=== PATIENT | female | born 1970 | race African-American/Black ===

== ENCOUNTER → 2017-03-12 | Outpatient (CLI) | payer OTHER ==
[~2017-03-12] MED LIST: FOLI1TAB16 PO; HYDR12.58 PO; LEVO25TA4 PO; POTA10CA PO; POTA20LI PO
[2017-03-12 16:56] LABS: BASO # 0.1 x10^3/uL (0.0-0.2); BASO % 1 % (0-3); EOS % 2 % (0-3); HEMATOCRIT 39.2 % (36.0-47.0); HEMOGLOBIN 13.8 g/dL (12.0-15.5); LYMPH # 3.7 x10^3/uL (1.0-4.8); LYMPH % 30 % (24-48); MEAN CORPUSCULAR HEMOGLOBIN 30 pg (25-35); MEAN CORPUSCULAR HGB CONC 35 g/dL (31-37); MEAN CORPUSCULAR VOLUME 85 fL (79-100); MONO % 5 % (0-9); NEUT % 63 % (31-73); PLATELET COUNT 262 x10^3/uL (140-400); RED BLOOD COUNT 4.61 x10^6/uL (3.50-5.40); RED CELL DISTRIBUTION WIDTH 15.6 % (11.5-14.5); WHITE BLOOD COUNT 12.4 x10^3/uL (4.0-11.0)
[2017-03-12 17:08] LABS: CREATININE 1.1 mg/dL (0.6-1.0); GFR 65.3; POTASSIUM 3.5 mmol/L (3.5-5.1)
[2017-03-12 17:22] LABS: FREE T4 1.33 ng/dL (0.76-1.46)
== END | disposition home or self-care (01) ==
LOC: LAB 16:31
PROVIDERS: ATTEND Family Medicine
DX: E11.9 Type 2 diabetes mellitus without complications (principal); D64.9 Anemia, unspecified; E03.9 Hypothyroidism, unspecified
CPT/HCPCS: 36415; 80048; 83036; 84439; 84443; 85027

== ENCOUNTER → 2017-10-14 | Outpatient (CLI) | payer OTHER ==
[~2017-10-14] MED LIST changes: -POTA10CA PO; -POTA20LI PO; +POTA20LI27 PO; +POTASSIUM CHLO10 MEQ PO
[2017-10-14 15:52] LABS: ALBUMIN 3.7 g/dL (3.4-5.0); ALBUMIN/GLOBULIN RATIO 0.9 (1.0-1.7); CALCIUM 9.4 mg/dL (8.5-10.1); CREATININE 0.9 mg/dL (0.6-1.0); GFR 81.9; POTASSIUM 3.5 mmol/L (3.5-5.1); TOTAL BILIRUBIN 0.2 mg/dL (0.2-1.0)
[2017-10-14 15:56] LABS: CHOLESTEROL/HDL RATIO 4.8
[2017-10-14 16:00] LABS: FREE T4 1.19 ng/dL (0.76-1.46)
== END | disposition home or self-care (01) ==
LOC: LAB 15:14
PROVIDERS: ATTEND Family Medicine
DX: E11.9 Type 2 diabetes mellitus without complications (principal); E03.9 Hypothyroidism, unspecified
CPT/HCPCS: 36415; 80053; 80061; 83036; 84439; 84443

== ENCOUNTER 2018-02-12 08:55 | Emergency (ER) | payer OTHER ==
[2018-02-12] MEDS: PROMETH/CODEINE 6.25/10MG 5 ML SYRUP. PO (09:43)
[2018-02-12 10:14] LABS: NEGATIVE OBC STREP NEG; POSITIVE OBC STREP POS
== END 2018-02-12 10:05 | disposition home or self-care (01) ==
LOC: ER 10:05
DX: J11.1 Influenza due to unidentified influenza virus with other respiratory manifestations (principal); E11.9 Type 2 diabetes mellitus without complications; I10 Essential (primary) hypertension; E89.0 Postprocedural hypothyroidism; Z88.0 Allergy status to penicillin
CPT/HCPCS: 87070; 87880; 99283

== ENCOUNTER → 2018-11-17 | Outpatient (CLI) | payer OTHER ==
[2018-02-12 09:13] VITALS: BP 147/84
[~2018-11-17] MED LIST changes: +GADOBUTROL 10 MMOL/10 ML VIAL IV ONE; +METF500T16 PO; +POTA10TA12 PO; -POTASSIUM CHLO10 MEQ PO; +PROM118S5 PO
--- NOTE | 2018-11-17 16:27 | KCIC ---
Examination: PELVIS WO/W CONTRAST History: Fibroids. Heavy bleeding since March. Comparison/Correlation: Correlation with pelvic ultrasound reports dated 12/26/2008 Findings: Multiplanar, multisequence images of the pelvis were obtained. Following 9 cc Gadavist IV, sagittal T1 fat saturation images were provided. The uterus is enlarged measuring up to 17 cm longitudinal by 8.5 cm in anteroposterior by 9.4 cm transverse. Heterogeneity of the myometrium which likely represents diffuse fibroid involvement is identified. There is a focal fibroid at the anterior aspect of the lower uterine body measuring up to 3 cm diameter. There is no enhancement within it. Endometrial thickness of 0.8 cm is present. There is no intrauterine fluid collection. Junctional zone is unremarkable with no significant thickening. There appear to be 2 nabothian cysts within uterine cervix with larger of these measuring 0.8 cm diameter. Right adnexal cyst measuring 3 cm diameter is benign in appearance. No left adnexal masses. No pelvic free fluid. Musculoskeletal by the pelvis is partially seen and unremarkable. Visualized marrow is normal. Hip joints are symmetric. No pelvic free fluid. Urinary bladder is decompressed but grossly unremarkable. Impression: Enlarged fibroid uterus. Diffuse fibroid involvement is evident. There is a dominant fibroid at the anterior aspect of the lower uterine body. No suspicious junctional zone findings. Endometrial thickness is unremarkable. Simple benign-appearing right adnexal cyst. Electronically signed by: Tate Mendiola MD (11/17/2018 4:23 PM) [facility]
== END | disposition home or self-care (01) ==
LOC: KCIC MRI 11:30
PROVIDERS: ATTEND Obstetrics & Gynecology
DX: D25.9 Leiomyoma of uterus, unspecified (principal); N83.8 Other noninflammatory disorders of ovary, fallopian tube and broad ligament; I10 Essential (primary) hypertension; E11.9 Type 2 diabetes mellitus without complications
CPT/HCPCS: 72197; 82565; A9585

== ENCOUNTER 2019-04-27 08:30 | Observation (INO) | payer OTHER ==
[~2019-04-27] VITALS: Ht 149.9 cm; Wt 90.7 kg
[2019-04-27] VITALS (9 sets, daily range): BP systolic 137–166; BP diastolic 87–108
[~2019-04-27 08:30] MED LIST changes: -GADOBUTROL 10 MMOL/10 ML VIAL IV ONE; +GLIP5TAB22 PO; +LEVO1TAB47 PO; +TRIA1TAB3 PO
[2019-04-27 09:10] LABS: BASO % 0 % (0-3); CALCIUM 8.9 mg/dL (8.5-10.1); CREATININE 0.8 mg/dL (0.6-1.0); EOS # 0.2 x10^3/uL (0.0-0.7); EOS % 3 % (0-3); GFR 93.4; HEMATOCRIT 40.6 % (36.0-47.0); HEMOGLOBIN 13.9 g/dL (12.0-15.5); LYMPH # 2.6 x10^3/uL (1.0-4.8); LYMPH % 30 % (24-48); MEAN CORPUSCULAR HEMOGLOBIN 30 pg (25-35); MEAN CORPUSCULAR HGB CONC 34 g/dL (31-37); MEAN CORPUSCULAR VOLUME 87 fL (79-100); MONO # 0.5 x10^3/uL (0.0-1.1); MONO % 6 % (0-9); NEUT # 5.3 x10^3uL (1.8-7.7); NEUT % 61 % (31-73); PLATELET COUNT 202 x10^3/uL (140-400); POTASSIUM 3.8 mmol/L (3.5-5.1); RED BLOOD COUNT 4.67 x10^6/uL (3.50-5.40); RED CELL DISTRIBUTION WIDTH 14.1 % (11.5-14.5); WHITE BLOOD COUNT 8.7 x10^3/uL (4.0-11.0)
[2019-04-27 09:23] LABS: PROTHROMBIN TIME PATIENT 14.4 SEC (11.7-14.0)
[2019-04-27] MEDS ORDERED: DOXY100C2 PO (09:25)
[2019-04-27] MEDS ORDERED: LIDOCAINE WITH 8.4% SOD BICARB 3 ML DISP.SYRIN. ONE ×2 (10:13→12:15)
[2019-04-27] MEDS ORDERED: IODIXANOL 320 MG/ML 100 ML VIAL. ONE (10:13)
[2019-04-27] MEDS ORDERED: IOHEXOL 300 MG/ML 100ML VIAL. ONE ×2 (10:17→10:46)
--- NOTE | 2019-04-27 10:25 | PDOC1 ---
History and Physical Date of Admission Date of Admission DATE: 04/27/19 TIME: 10:10 Identification/Chief Complaint Chief Complaint Uterine bleeding Source Source: Patient History of Present Illness History of Present Illness Ms Jordan is a 48yo F w/ PMHx Diabetes-Type II, Hypertension, hypothyroid s/p total thyroidectomy, uterine bleeding with fibroids s/p prior d&c who presents today for uterine arterial embolization for symptomatic uterine bleeding. She has been fatigued since this last September 2018. For her diabetes she states she is prediabetic, however, has A1c last September of 7.8 managed on metformin alone. TSH has been WNL. Glucose this morning was 199, INR 1.2, otherwise her Hb was 13.9, no abnormalities on labs. She is UTD on mammogram and Pap smear. She has no other complaints today. She does note she is recovering from a sinus infection last month, but notes her sinus pressure and cough have resolved. Past Medical History Cardiovascular: HTN Pulmonary: No pertinent hx GI: No pertinent hx Heme/Onc: No pertinent hx Hepatobiliary: No pertinent hx Psych: No pertinent hx Rheumatologic: No pertinent hx Infectious disease: No pertinent hx ENT: No pertinent hx Renal/: No pertinent hx Endocrine: Diabetes, Hypothyroidism Dermatology: No pertinent hx Past Surgical History Past Surgical History: Other (Thyroidectomy) Family History Family History: Cancer, Diabetes, High Cholestrol, Hypertension Family History: Parent (HTN in mother and father), Grandparents (Breast cancer in paternal grandmother) Social History Smoke: No ALCOHOL: rare Drugs: None Current Medications Current Medications Active Scripts Active Reported Doxycycline Hyclate 100 Mg Capsule 1 Cap PO BID Glipizide Er (Glipizide) 5 Mg Tab.er.24 1 Tab PO DAILY Triamterene-Hctz 37.5-25 Mg Tb (Triamterene/Hydrochlorothiazid) 1 Each Tablet 1 Tab PO DAILY Kurvelo (Levonorgestrel-Eth Estradiol) 1 Each Tablet 1 Each PO DAILY Metformin Hcl 500 Mg Tablet 500 Mg PO BIDWMEALS Levothyroxine Sodium 25 Mcg Tablet 1 Tab PO DAILY Allergies Allergies: Coded Allergies: Penicillins (Unverified Allergy, Intermediate, 06/25/15) ROS General: YES: Fatigue, Malaise; No: Chills, Night Sweats, Appetite, Other PSYCHOLOGICAL ROS: No: Anxiety, Behavioral Disorder, Concentration difficultie, Decreased libido, Depression, Disorientation, Hallucinations, Hostility, Irritablity, Memory difficulties, Mood Swings, Obsessive thoughts, Physical abuse, Sexual abuse, Sleep disturbances, Suicidal ideation, Other Eyes: No Blurry vision, No Decreased vision, No Double vision, No Dry eyes, No Excessive tearing, No Eye Pain, No Itchy Eyes, No Loss of vision, No Photopho saima, No Scotomata, No Uses contacts, No Uses glasses, No Other HEENT: No: Heacaches, Visual Changes, Hearing change, Nasal congestion, Nasal discharge, Oral lesions, Sinus pain, Sore Throat, Epistaxis, Sneezing, Snoring, Tinnitus, Vertigo, Vocal changes, Other ALLERGY AND IMMUNOLOGY: No: Hives, Insect Bite Sensitivity, Itchy/Watery Eyes, Nasal Congestion, Post Nasal Drip, Seasonal Allergies, Other Hematological and Lymphatic: No: Bleeding Problems, Blood Clots, Blood Transfusions, Brusing, Night Sweats, Pallor, Swollen Lymph Nodes, Other ENDOCRINE: No: Breast Changes, Galactorrhea, Hair Pattern Changes, Hot Flashes, Malaise/lethargy, Mood Swings, Palpitations, Polydipsia/polyuria, Skin Changes, Temperature Intolerance, Unexpected Weight Changes, Other Breast: No New/Changing Breast Lumps, No Nipple changes, No Nipple discharge, No Other Respiratory: No: Cough, Hemoptysis, Orthopnea, Pleuritic Pain, Shortness of breath, SOB with excertion, Sputum Changes, Stridor, Tachypnea, Wheezing, Other Cardiovascular: No Chest Pain, No Palpitations, No Orthopnea, No Paroxysmal Noc. Dyspnea, No Edema, No Lt Headedness, No Other Gastrointestinal: No Nausea, No Vomiting, No Abdominal Pain, No Diarrhea, No Constipation, No Melena, No Hematochezia, No Other Genitourinary: No Dysuria, No Frequency, No Incontinence, No Hematuria, No Ret ention, No Discharge, No Urgency, No Pain, No Flank Pain, No Other, No , No , No , No , No , No , No Musculoskeletal: No Gait Disturbance, No Joint Pain, No Joint Stiffness, No Joint Swelling, No Muscle Pain, No Muscular Weakness, No Pain In:, No Swelling In:, No Other Neurological: No Behavorial Changes, No Bowel/Bladder ControlChng, No Confusion, No Dizziness, No Gait Disturbance, No Headaches, No Impaired Coord/balance, No Memory Loss, No Numbness/Tingling, No Seizures, No Speech Problems, No Tremors, No Visual Changes, No Weakness, No Other Skin: No Dry Skin, No Eczema, No Hair Changes, No Lumps, No Mole Changes, No Mottling, No Nail Changes, No Pruritus, No Rash, No Skin Lesion Changes, No Other, No Acne Physical Exam General: Alert, Oriented X3, Cooperative, No acute distress HEENT: Atraumatic, PERRLA, EOMI, Mucous membr. moist/pink, Other (Glasses in place) Lungs: Clear to auscultation, Normal air movement Heart: S1S2, RRR, no gallops, no murmurs Abdomen: Normal bowel sounds, Soft, No tenderness, No hepatosplenomegaly, No masses Rectal Exam: not examined Extremities: No clubbing, No cyanosis, No edema, Normal pulses, No tenderness/swelling Skin: No rashes, No breakdown, No significant lesion Neuro: Normal gait, Normal speech, Strength at 5/5 X4 ext, Normal tone, Sensation intact, Cranial nerves 3-12 NL, Reflexes 2+ Psych/Mental Status: Mental status NL, Mood NL Vitals Vitals Vital Signs Date Time Temp Pulse Resp B/P (MAP) Pulse Ox O2 Delivery O2 Flow Rate FiO2 04/27/19 09:07 98.7 84 16 166/96 (119) 97 Room Air 98.7 Labs Labs Laboratory Tests Test 04/27/19 08:47 White Blood Count 8.7 x10^3/uL (4.0-11.0) Red Blood Count 4.67 x10^6/uL (3.50-5.40) Hemoglobin 13.9 g/dL (12.0-15.5) Hematocrit 40.6 % (36.0-47.0) Mean Corpuscular Volume 87 fL (79-100) Mean Corpuscular Hemoglobin 30 pg (25-35) Mean Corpuscular Hemoglobin Concent 34 g/dL (31-37) Red Cell Distribution Width 14.1 % (11.5-14.5) Platelet Count 202 x10^3/uL (140-400) Neutrophils (%) (Auto) 61 % (31-73) Lymphocytes (%) (Auto) 30 % (24-48) Monocytes (%) (Auto) 6 % (0-9) Eosinophils (%) (Auto) 3 % (0-3) Basophils (%) (Auto) 0 % (0-3) Neutrophils # (Auto) 5.3 x10^3uL (1.8-7.7) Lymphocytes # (Auto) 2.6 x10^3/uL (1.0-4.8) Monocytes # (Auto) 0.5 x10^3/uL (0.0-1.1) Eosinophils # (Auto) 0.2 x10^3/uL (0.0-0.7) Basophils # (Auto) 0.0 x10^3/uL (0.0-0.2) Prothrombin Time 14.4 SEC (11.7-14.0) Prothromb Time International Ratio 1.2 (0.8-1.1) Activated Partial Thromboplast Time 25 SEC (24-38) Sodium Level 138 mmol/L (136-145) Potassium Level 3.8 mmol/L (3.5-5.1) Chloride Level 102 mmol/L (98-107) Carbon Dioxide Level 22 mmol/L (21-32) Anion Gap 14 (6-14) Blood Urea Nitrogen 12 mg/dL (7-20) Creatinine 0.8 mg/dL (0.6-1.0) Estimated GFR (Cockcroft-Gault) 93.4 Glucose Level 199 mg/dL (70-99) Calcium Level 8.9 mg/dL (8.5-10.1) Laboratory Tests Test 04/27/19 08:47 White Blood Count 8.7 x10^3/uL (4.0-11.0) Red Blood Count 4.67 x10^6/uL (3.50-5.40) Hemoglobin 13.9 g/dL (12.0-15.5) Hematocrit 40.6 % (36.0-47.0) Mean Corpuscular Volume 87 fL (79-100) Mean Corpuscular Hemoglobin 30 pg (25-35) Mean Corpuscular Hemoglobin Concent 34 g/dL (31-37) Red Cell Distribution Width 14.1 % (11.5-14.5) Platelet Count 202 x10^3/uL (140-400) Neutrophils (%) (Auto) 61 % (31-73) Lymphocytes (%) (Auto) 30 % (24-48) Monocytes (%) (Auto) 6 % (0-9) Eosinophils (%) (Auto) 3 % (0-3) Basophils (%) (Auto) 0 % (0-3) Neutrophils # (Auto) 5.3 x10^3uL (1.8-7.7) Lymphocytes # (Auto) 2.6 x10^3/uL (1.0-4.8) Monocytes # (Auto) 0.5 x10^3/uL (0.0-1.1) Eosinophils # (Auto) 0.2 x10^3/uL (0.0-0.7) Basophils # (Auto) 0.0 x10^3/uL (0.0-0.2) Prothrombin Time 14.4 SEC (11.7-14.0) Prothromb Time International Ratio 1.2 (0.8-1.1) Activated Partial Thromboplast Time 25 SEC (24-38) Sodium Level 138 mmol/L (136-145) Potassium Level 3.8 mmol/L (3.5-5.1) Chloride Level 102 mmol/L (98-107) Carbon Dioxide Level 22 mmol/L (21-32) Anion Gap 14 (6-14) Blood Urea Nitrogen 12 mg/dL (7-20) Creatinine 0.8 mg/dL (0.6-1.0) Estimated GFR (Cockcroft-Gault) 93.4 Glucose Level 199 mg/dL (70-99) Calcium Level 8.9 mg/dL (8.5-10.1) Images Images MRI pelvis - The uterus is enlarged measuring up to 17 cm longitudinal by 8.5 cm in anteroposterior by 9.4 cm transverse. Heterogeneity of the myometrium which likely represents diffuse fibroid involvement is identified. There is a focal fibroid at the anterior aspect of the lower uterine body measuring up to 3 cm diameter. There is no enhancement within it. Endometrial thickness of 0.8 cm is present. There is no intrauterine fluid collection. Junctional zone is unremarkable with no significant thickening. The re appear to be 2 nabothian cysts within uterine cervix with larger of these measuring 0.8 cm diameter. Right adnexal cyst measuring 3 cm diameter is benign in appearance. No left adnexal masses. No pelvic free fluid. Musculoskeletal by the pelvis is partially seen and unremarkable. Visualized marrow is normal. Hip joints are symmetric. No pelvic free fluid. Urinary bladder is decompressed but grossly unremarkable. Impression: Enlarged fibroid uterus. Diffuse fibroid involvement is evident. There is a sania nant fibroid at the anterior aspect of the lower uterine body. No suspicious junctional zone findings. Endometrial thickness is unremarkable. Simple benign-appearing right adnexal cyst. VTE Prophylaxis Ordered VTE Prophylaxis Devices: Yes VTE Pharmacological Prophylaxi: No Assessment/Plan Assessment/Plan A/P: Abnormal uterine bleeding - 2/2 large fibroid. No further testing required prior to procedure. Will check CBC and type and screen in AM Hypothyroid - surgically, needs complete replacement, will cont DM2 - will hold metformin with contrast dye exposure, sliding scale. She should consider secondary medication with A1c of 7.8 HTN - cont meds FEN - NPO for procedure. ADA diet post op PPX - SCDs now, lovenox tonight FULL CODE Observation status for uterine bleeding overnight ABDIRAHMAN GONZALEZ MD April 27, 2019 10:25
[2019-04-27 10:30] LABS: U PREG PATIENT NEGATIVE (NEG)
[2019-04-27] MEDS ORDERED: DEXTROSE 50% 25 GM / 50ML DISP.SYRIN. IV PRN (10:30)
[2019-04-27] MEDS ORDERED: MAGNESIUM HYDROXIDE 2,400 MG/30 ML ORAL.SUSP. PO PRN (10:30)
[2019-04-27] MEDS ORDERED: MAG HYDROX/ALUMINUM HYD/SIMETH 30 ML ORAL.SUSP PO PRN (10:30)
[2019-04-27] MEDS ORDERED: KETOROLAC 30 MG/ML VIAL. IV PRN ×2 (10:30→17:00)
[2019-04-27] MEDS ORDERED: ACETAMINOPHEN 325 MG TABLET. PO PRN (10:30)
[2019-04-27] MEDS ORDERED: ONDANSETRON PF 4 MG/2 ML VIAL. IV PRN (10:30)
[2019-04-27] MEDS ORDERED: SCOPOLAMINE 1.5MG PATCH. TD ONE (10:45)
[2019-04-27] MEDS ORDERED: ONDANSETRON PF 4 MG/2 ML VIAL. IV ONE (10:45)
[2019-04-27] MEDS ORDERED: KETOROLAC 30 MG/ML VIAL. IV ONE (10:45)
[2019-04-27] MEDS ORDERED: LISINOPRIL 5 MG TABLET. PO SCH (11:00)
[2019-04-27] MEDS ORDERED: MIDAZOLAM HCL/PF 5 MG/5 ML VIAL. ONE (11:10)
[2019-04-27] MEDS ORDERED: fentaNYL PF VIAL 250 MCG/5 ML VIAL ONE (11:10)
[2019-04-27] MEDS ORDERED: ONDANSETRON PF 4 MG/2 ML VIAL. ONE (11:22)
[2019-04-27] MEDS ORDERED: LIDOCAINE WITH 8.4% SOD BICARB 3 ML DISP.SYRIN. IJ ONE (11:45)
[2019-04-27] MEDS ORDERED: MIDAZOLAM HCL/PF 5 MG/5 ML VIAL. IV ONE (11:45)
[2019-04-27] MEDS ORDERED: fentaNYL PF VIAL 250 MCG/5 ML VIAL IV ONE (11:45)
[2019-04-27] MEDS ORDERED: IOHEXOL 300 MG/ML 100ML VIAL. IART ONE (11:45)
[2019-04-27] MEDS ORDERED: glipiZIDE ER 2.5 MG TAB.ER.24 PO SCH (12:00)
[2019-04-27] MEDS ORDERED: INSULIN LISPRO 300 UNITS/3 ML INSULN.PEN. SQ SCH (12:00)
[2019-04-27] MEDS ORDERED: CONTRAST GIVEN. MC PRN (12:00)
--- NOTE | 2019-04-27 12:57 | PDOC ---
BRIEF OPERATIVE NOTE Pre-Op Diagnosis Dysmenorrhea, uterine fibroids Post-Op Diagnosis same Procedure Performed Uterine artery embolizations, bilateral Surgeon Carolina Anesthesia Type: Conscious Sedation Findings Bilateral uterine artery embolization Complications No immediate JAKY ESCALERA MD April 27, 2019 12:56
--- NOTE | 2019-04-27 12:57 | PDOC ---
MODERATE SEDATION ASSESSMENT RISKS/ALTERNATIVES Risks/Alternatives Risks and alternatives of this type of sedation and procedure discussed with: RISK/ALTERNATIVES: Patient H & P ON CHART H & P H & P on chart and reviewed for co-morbid conditions and appropriate labs. H&P ON CHART: Yes STATUS PREG STATUS ASSESSED: Yes MEDS/ALLERGIES REVIEWED Meds/Allergies Reviewed Medications and Allergies including time and route of recently administered narcotics and sedatives. MEDS/ALLERGIES REVIEWED: Yes ASA RATING ASA RATING: II AIRWAY ASSESSMENT Airway Assessment Airway patency, oral function limitations, presence of caps, crowns, dentures, partials, and ability to extend neck assessed. AIRWAY ASSESSMENT: Yes MALLAMPATI SCORE MALLAMPATI SCORE: II PRE-SEDATION ASSESSMENT PRE-SEDATION ASSESSMENT: Yes JAKY ESCALERA MD April 27, 2019 12:57
[2019-04-27] MEDS ORDERED: MORPHINE SULFATE 2 MG/ML VIAL. IV PRN (14:30)
[2019-04-27] MEDS: oxyCODONE/APAP 5/325 1 TAB TABLET PO PRN ×2 (14:46→20:02)
--- NOTE | 2019-04-27 17:05 | RAD ---
Procedure: Pelvic arteriogram and bilateral uterine artery embolization Clinical Indication: 48-year-old female with dysmenorrhea, dyspareunia, and uterine fibroids. Patient has a negative endometrial biopsy. Sedation: Conscious sedation was administered with a total intraprocedural [id number] time of 65 minutes. The patient was monitored by a qualified independent observer throughout the time of sedation. Please refer to the medical record for exact doses of medications utilized to achieve moderate sedation. Antibiotics: Antibiotic was administered intravenously within 1 hour of the procedure start time. Exposure: Kerma-Area Product: 491 Gycm2 OR Fluoro Time: Images: Contrast: 65 cc of Omnipaque 320 contrast media Sterility: All elements of maximal sterile barrier technique including the use of a cap, mask, sterile gown, sterile gloves, large sterile sheet, appropriate hand hygiene, and 2% chlorhexidine for cutaneous antisepsis (or acceptable alternative antiseptic per current guidelines) were followed for this procedure. If ultrasound guidance was utilized, sterile ultrasound techniques were followed including use of a sterile probe cover. Consent: The procedure was explained in its entirety to the patient or the patients designated bilingual sales representative by a member of the treatment team, including a discussion of the risks, benefits and commonly accepted alternatives to the procedure, as well as the expected consequences of no therapy whatsoever. Discussion of the risks included, but was not limited to, those that are most frequent and those that are rare but possibly severe or life-threatening, as well as the possibility of unforeseen complications. Technique and Findings: Following informed consent, the patient was prepped and draped in usual sterile fashion. Ultrasound interrogation of the right groin was performed, demonstrating patency of the right common femoral artery. A hardcopy ultrasound image was recorded as a 21-gauge micropuncture needle was used to gain access to this vessel. The needle was exchanged over wire for 5 Croatian sheath. A flush catheter was then advanced in the abdominal aorta and contrast aortography was performed. No prominent contribution from the gonadal arteries is identified. Bilateral hypogastric arteries and bilateral uterine arteries are patent. The flush catheter was then exchanged over wire for a Cobra catheter which was advanced into the contralateral left internal iliac artery and selective angiography was performed in multiple obliquities to best delineate the origin of the left uterine artery. A Progreat microcatheter was then advanced into the uterine artery just beyond the level of the transverse segment, and selective angiography was performed nicely demonstrating flow to the uterus, with no extrauterine perfusion. Particulate embolization of this artery was then performed with the catheter in this location, using 500-700 um embosphere beads to achieve 5 beat stasis. The microcatheter was then removed and a completion angiogram was performed from the left hypogastric artery nicely depicting marked reduction in perfusion with pruning of the peripheral vasculature. The Cobra catheter was then withdrawn into the ipsilateral side and used to select the ipsilateral hypogastric artery. Contrast angiography was performed confirming patency of the right uterine artery. The Progreat microcatheter was then advanced into the right uterine artery, and once again positioned just beyond the transverse segment. Selective angiography demonstrated perfusion of the uterus with no extra uterine perfusion. Particulate embolization was performed in this location using 500-700 um embosphere beats to achieve 5 beat stasis. The microcatheter was then removed and a completion antegrade was performed from the hypogastric artery nicely demonstrating marked reduction in perfusion with pruning of the peripheral vasculature. The guide catheter was then removed and contrast angiography of the right groin was performed to assess for suitability of a closure device. A minx closure device was then utilized to obtain hemostasis. Complications: No immediate Impression: 1. Aortogram with pelvic angiography demonstrating a fibroid uterus with no unexpected gonadal vein contribution. 2. Bilateral uterine artery embolization as described.
--- NOTE | 2019-04-27 19:17 | NUR ---
pt blood sugar was 200 pt refused insulin
[2019-04-27] MEDS: SENNOSIDES/DOCUSATE 8.6/50MG TABLET. PO SCH ×2 (20:02→21:00)
[2019-04-27] MEDS ORDERED: INSULIN GLARGINE 300 UNITS/3 ML INSULN.PEN. SQ SCH (21:00)
--- NOTE | 2019-04-27 21:00 | NUR ---
Gave pt Senna with her pain medication at 1999, instead of 2099.
[2019-04-28] MEDS: oxyCODONE/APAP 5/325 1 TAB TABLET PO PRN ×3 (01:22→10:42)
[2019-04-28 03:00] VITALS: BP 153/90
[2019-04-28 04:20] LABS: BASO # 0.1 x10^3/uL (0.0-0.2); BASO % 1 % (0-3); EOS # 0.2 x10^3/uL (0.0-0.7); EOS % 2 % (0-3); HEMOGLOBIN 12.8 g/dL (12.0-15.5); LYMPH # 2.9 x10^3/uL (1.0-4.8); LYMPH % 29 % (24-48); MEAN CORPUSCULAR HEMOGLOBIN 30 pg (25-35); MEAN CORPUSCULAR HGB CONC 34 g/dL (31-37); MEAN CORPUSCULAR VOLUME 88 fL (79-100); MONO # 0.6 x10^3/uL (0.0-1.1); MONO % 6 % (0-9); NEUT # 6.3 x10^3uL (1.8-7.7); NEUT % 62 % (31-73); PLATELET COUNT 186 x10^3/uL (140-400); RED BLOOD COUNT 4.31 x10^6/uL (3.50-5.40); RED CELL DISTRIBUTION WIDTH 14.2 % (11.5-14.5); WHITE BLOOD COUNT 10.2 x10^3/uL (4.0-11.0)
[2019-04-28 05:52] VITALS: BP 135/96
[2019-04-28] MEDS ORDERED: LEVOTHYROXINE 125 MCG TABLET PO SCH (06:00)
--- NOTE | 2019-04-28 10:17 | PDOC ---
IR PROGRESS NOTE Subjective Subjective Mild abdominal pain, no fever, no dysuria. Tired. Pain controlled with po pain medications. Pt. did not require PATTERN WHE[employer]. Tolerating PO Objective Objective Vital Signs Date Time Temp Pulse Resp B/P (MAP) Pulse Ox O2 Delivery O2 Flow Rate FiO2 04/28/19 06:00 18 96 Room Air 04/28/19 06:00 75 135/96 04/28/19 05:52 98.8 98.8 04/27/19 12:54 2.0 Intake and Output 04/28/19 07:00 Intake Total 1300 ml Output Total 1350 ml Balance -50 ml Intake Oral 1200 ml IV Total 100 ml Output Urine Total 1350 ml Other A & O x 3, right groin site free of hematoma/echymosis, abdomen soft and non- tender Comment Review of Relevant I have reviewed the following items rocky (where applicable) has been applied. Labs Laboratory Tests Test 04/27/19 08:47 04/27/19 09:50 04/27/19 18:14 04/28/19 04:05 White Blood Count 8.7 x10^3/uL (4.0-11.0) 10.2 x10^3/uL (4.0-11.0) Red Blood Count 4.67 x10^6/uL (3.50-5.40) 4.31 x10^6/uL (3.50-5.40) Hemoglobin 13.9 g/dL (12.0-15.5) 12.8 g/dL (12.0-15.5) Hematocrit 40.6 % (36.0-47.0) 38.0 % (36.0-47.0) Mean Corpuscular Volume 87 fL (79-100) 88 fL (79-100) Mean Corpuscular Hemoglobin 30 pg (25-35) 30 pg (25-35) Mean Corpuscular Hemoglobin Concent 34 g/dL (31-37) 34 g/dL (31-37) Red Cell Distribution Width 14.1 % (11.5-14.5) 14.2 % (11.5-14.5) Platelet Count 202 x10^3/uL (140-400) 186 x10^3/uL (140-400) Neutrophils (%) (Auto) 61 % (31-73) 62 % (31-73) Lymphocytes (%) (Auto) 30 % (24-48) 29 % (24-48) Monocytes (%) (Auto) 6 % (0-9) 6 % (0-9) Eosinophils (%) (Auto) 3 % (0-3) 2 % (0-3) Basophils (%) (Auto) 0 % (0-3) 1 % (0-3) Neutrophils # (Auto) 5.3 x10^3uL (1.8-7.7) 6.3 x10^3uL (1.8-7.7) Lymphocytes # (Auto) 2.6 x10^3/uL (1.0-4.8) 2.9 x10^3/uL (1.0-4.8) Monocytes # (Auto) 0.5 x10^3/uL (0.0-1.1) 0.6 x10^3/uL (0.0-1.1) Eosinophils # (Auto) 0.2 x10^3/uL (0.0-0.7) 0.2 x10^3/uL (0.0-0.7) Basophils # (Auto) 0.0 x10^3/uL (0.0-0.2) 0.1 x10^3/uL (0.0-0.2) Prothrombin Time 14.4 SEC (11.7-14.0) Prothromb Time International Ratio 1.2 (0.8-1.1) Activated Partial Thromboplast Time 25 SEC (24-38) Sodium Level 138 mmol/L (136-145) Potassium Level 3.8 mmol/L (3.5-5.1) Chloride Level 102 mmol/L (98-107) Carbon Dioxide Level 22 mmol/L (21-32) Anion Gap 14 (6-14) Blood Urea Nitrogen 12 mg/dL (7-20) Creatinine 0.8 mg/dL (0.6-1.0) Estimated GFR (Cockcroft-Gault) 93.4 Glucose Level 199 mg/dL (70-99) Calcium Level 8.9 mg/dL (8.5-10.1) Urine Test Negative (NEG) Glucose (Fingerstick) 200 mg/dL (70-99) Laboratory Tests Test 04/27/19 18:14 04/28/19 04:05 Glucose (Fingerstick) 200 mg/dL (70-99) White Blood Count 10.2 x10^3/uL (4.0-11.0) Red Blood Count 4.31 x10^6/uL (3.50-5.40) Hemoglobin 12.8 g/dL (12.0-15.5) Hematocrit 38.0 % (36.0-47.0) Mean Corpuscular Volume 88 fL (79-100) Mean Corpuscular Hemoglobin 30 pg (25-35) Mean Corpuscular Hemoglobin Concent 34 g/dL (31-37) Red Cell Distribution Width 14.2 % (11.5-14.5) Platelet Count 186 x10^3/uL (140-400) Neutrophils (%) (Auto) 62 % (31-73) Lymphocytes (%) (Auto) 29 % (24-48) Monocytes (%) (Auto) 6 % (0-9) Eosinophils (%) (Auto) 2 % (0-3) Basophils (%) (Auto) 1 % (0-3) Neutrophils # (Auto) 6.3 x10^3uL (1.8-7.7) Lymphocytes # (Auto) 2.9 x10^3/uL (1.0-4.8) Monocytes # (Auto) 0.6 x10^3/uL (0.0-1.1) Eosinophils # (Auto) 0.2 x10^3/uL (0.0-0.7) Basophils # (Auto) 0.1 x10^3/uL (0.0-0.2) Medications Current Medications Iodixanol (Visipaque 320) 100 ml STK-MED ONCE .ROUTE ; Start 04/27/19 at 10:13; Stop 04/27/19 at 10:14; Status DC Lidocaine/Sodium Bicarbonate (Buffered Lidocaine 1%) 3 ml STK-MED ONCE .ROUTE ; Start 04/27/19 at 10:13; Stop 04/27/19 at 10:14; Status DC Iohexol (Omnipaque 300 Mg/ml) 100 ml STK-MED ONCE .ROUTE ; Start 04/27/19 at 10:17; Stop 04/27/19 at 10:18; Status DC Heparin Sodium/ Sodium Chloride 500 ml @ As Directed STK-MED ONCE .ROUTE ; Start 04/27/19 at 10:18; Stop 04/27/19 at 10:19; Status DC Glipizide (Glucotrol Er) 5 mg DAILY08 PO ; Start 04/27/19 at 12:00 Levothyroxine Sodium (Synthroid) 125 mcg DAILY06 PO Last administered on 04/28/19at 06:00; Start 04/28/19 at 06:00 Ondansetron HCl (Zofran) 4 mg PRN Q6HRS PRN IV NAUSEA/VOMITING; Start 04/27/19 at 10:30 Al Hydroxide/Mg Hydroxide (Mylanta Plus Xs) 30 ml PRN Q3HRS PRN PO HEARTBURN / GAS; Start 04/27/19 at 10:30 Ketorolac Tromethamine (Toradol 30mg Vial) 30 mg PRN Q6HRS PRN IV PAIN; Start 04/27/19 at 10:30; Stop 05/02/19 at 10:29 Acetaminophen (Tylenol) 650 mg PRN Q6HRS PRN PO Headaches, Temp > 101.5F; Start 04/27/19 at 10:30 Senna/Docusate Sodium (Senna Plus) 1 tab BID PO Last administered on 04/27/19at 20:02; Start 04/27/19 at 11:00 Magnesium Hydroxide (Milk Of Magnesia) 2,400 mg PRN Q12HR PRN PO CONSTIPATION; Start 04/27/19 at 10:30 Insulin Glargine (Lantus) 5 units QHS SQ ; Start 04/27/19 at 21:00 Insulin Human Lispro (HumaLOG) 0-5 UNITS TIDWMEALHC SQ ; Start 04/27/19 at 12:00 Dextrose (Dextrose 50%-Water Syringe) 12.5 gm PRN Q15MIN PRN IV SEE COMMENTS; Start 04/27/19 at 10:30 Lisinopril (Prinivil) 2.5 mg DAILY PO Last administered on 04/28/19at 06:00; Start 04/27/19 at 11:00 Scopolamine (Transderm-Scop) 1 patch 1X ONCE TD Last administered on 04/27/19at 11:20; Start 04/27/19 at 10:45; Stop 04/27/19 at 10:46; Status DC Ondansetron HCl (Zofran) 8 mg 1X ONCE IV Last administered on 04/27/19at 10:45; Start 04/27/19 at 10:45; Stop 04/27/19 at 10:46; Status DC Ketorolac Tromethamine (Toradol 30mg Vial) 30 mg 1X ONCE IV Last administered on 04/27/19at 11:25; Start 04/27/19 at 10:45; Stop 04/27/19 at 10:46; Status DC Iohexol (Omnipaque 300 Mg/ml) 100 ml STK-MED ONCE .ROUTE ; Start 04/27/19 at 10:46; Stop 04/27/19 at 10:47; Status DC Heparin Sodium/ Sodium Chloride 500 ml @ As Directed STK-MED ONCE .ROUTE ; Start 04/27/19 at 10:46; Stop 04/27/19 at 10:47; Status DC Levofloxacin/ Dextrose 100 ml @ 100 mls/hr 1X ONCE IV Last administered on 04/27/19at 11:15; Start 04/27/19 at 10:45; Stop 04/27/19 at 11:44; Status DC Midazolam HCl (Versed) 5 mg STK-MED ONCE .ROUTE ; Start 04/27/19 at 11:10; Stop 04/27/19 at 11:11; Status DC Fentanyl Citrate (Fentanyl 5ml Vial) 250 mcg STK-MED ONCE .ROUTE ; Start 04/27/19 at 11:10; Stop 04/27/19 at 11:11; Status DC Levofloxacin/ Dextrose 100 ml @ As Directed STK-MED ONCE IV ; Start 04/27/19 at 11:10; Stop 04/27/19 at 11:11; Status DC Ondansetron HCl (Zofran) 4 mg STK-MED ONCE .ROUTE ; Start 04/27/19 at 11:22; Stop 04/27/19 at 11:23; Status DC Heparin Sodium/ Sodium Chloride (HEPARIN for ARTERIAL LINE FLUSH) 1,000 unit 1X ONCE IART Last administered on 04/27/19at 11:45; Start 04/27/19 at 11:45; Stop 04/27/19 at 11:48; Status DC Lidocaine/Sodium Bicarbonate (Buffered Lidocaine 1%) 3 ml 1X ONCE IJ Last administered on 04/27/19at 11:45; Start 04/27/19 at 11:45; Stop 04/27/19 at 11:48; Status DC Midazolam HCl (Versed) 5 mg 1X ONCE IV Last administered on 04/27/19at 11:45; Start 04/27/19 at 11:45; Stop 04/27/19 at 11:48; Status DC Fentanyl Citrate (Fentanyl 5ml Vial) 25 mcg 1X ONCE IV Last administered on 04/27/19at 11:45; Start 04/27/19 at 11:45; Stop 04/27/19 at 11:48; Status DC Iohexol (Omnipaque 300 Mg/ml) 100 ml 1X ONCE IART Last administered on 04/27/19at 11:45; Start 04/27/19 at 11:45; Stop 04/27/19 at 11:48; Status DC Info (CONTRAST GIVEN -- Rx MONITORING) 1 each PRN DAILY PRN MC SEE COMMENTS; Start 04/27/19 at 12:00; Stop 04/29/19 at 11:59 Lidocaine/Sodium Bicarbonate (Buffered Lidocaine 1%) 3 ml STK-MED ONCE .ROUTE ; Start 04/27/19 at 12:15; Stop 04/27/19 at 12:16; Status DC Levofloxacin/ Dextrose 100 ml @ 100 mls/hr Q24H IV ; Start 04/28/19 at 08:00; Stop 05/01/19 at 08:00 Ketorolac Tromethamine (Toradol 30mg Vial) 30 mg PRN Q6HRS PRN IV PAIN Last administered on 04/27/19at 18:26; Start 04/27/19 at 17:00; Stop 05/02/19 at 16:59 Oxycodone/ Acetaminophen (Percocet 5/325) 1 tab PRN Q4HRS PRN PO MODERATE PAIN Last administered on 04/28/19at 06:00; Start 04/27/19 at 14:30 Morphine Sulfate (Morphine Sulfate) 1 mg PRN Q3HRS PRN IV PAIN; Start 04/27/19 at 14:30 Oxycodone/ Acetaminophen (Percocet 5/325) 2 tab PRN Q4HRS PRN PO SEVERE PAIN Last administered on 04/27/19at 20:02; Start 04/27/19 at 14:45 Active Scripts Active Reported Doxycycline Hyclate 100 Mg Capsule 1 Cap PO BID Glipizide Er (Glipizide) 5 Mg Tab.er.24 1 Tab PO DAILY Triamterene-Hctz 37.5-25 Mg Tb (Triamterene/Hydrochlorothiazid) 1 Each Tablet 1 Tab PO DAILY Kurvelo (Levonorgestrel-Eth Estradiol) 1 Each Tablet 1 Each PO DAILY Metformin Hcl 500 Mg Tablet 500 Mg PO BIDWMEALS Levothyroxine Sodium 25 Mcg Tablet 1 Tab PO DAILY Vitals/I & O Vital Sign - Last 24 Hours 04/27/19 04/27/19 04/27/19 04/27/19 11:00 11:45 12:54 13:35 Temp 97.8 97.8 Pulse 81 82 Resp 14 14 18 B/P (MAP) 139/104 (116) Pulse Ox 98 98 97 O2 Delivery Room Air Nasal Cannula Nasal Cannula Room Air O2 Flow Rate 2.0 2.0 04/27/19 04/27/19 04/27/19 04/27/19 13:50 14:05 14:20 16:29 Pulse 87 84 87 18 Resp 18 B/P (MAP) 146/108 (121) 147/102 (117) 144/101 (115) 139/102 (114) Pulse Ox 98 97 O2 Delivery Room Air Room Air Room Air Room Air 04/27/19 04/27/19 04/27/19 04/27/19 18:15 20:02 21:50 23:00 Temp 98.0 98.1 98.0 98.1 Pulse 78 57 Resp 18 18 B/P (MAP) 137/93 (108) 147/87 (107) Pulse Ox 98 99 O2 Delivery Room Air Room Air Room Air Room Air 04/28/19 04/28/19 04/28/19 04/28/19 00:13 01:22 02:30 03:00 Temp 98.3 98.3 Pulse 56 Resp 18 18 18 18 B/P (MAP) 153/90 (111) Pulse Ox 98 O2 Delivery Room Air Room Air Room Air 04/28/19 04/28/19 04/28/19 05:52 06:00 06:00 Temp 98.8 98.8 Pulse 75 75 Resp 20 18 B/P (MAP) 135/96 (109) 135/96 Pulse Ox 96 96 O2 Delivery Room Air Room Air l Intake and Output 04/27/19 04/27/1919 15:00 23:00 07:00 Intake Total 100 ml 1100 ml 100 ml Output Total 550 ml 800 ml Balance 100 ml 550 ml -700 ml Assessment Assessment s/p bilateral uterine artery embolization for symptomatic uterine fibroids, pod 1 Plan Plan Ok to d/c navarro and d/c home today. F/U with IR in 3 months. Discharge instructions provided. D/C Meds - Levaquin, Medrol Dose Berto, Hydrocodone/APAP. JAKY ESCALERA MD April 28, 2019 10:17
[2019-04-28] MEDS: SENNOSIDES/DOCUSATE 8.6/50MG TABLET. PO SCH (10:41)
[2019-04-28] MEDS ORDERED: LEVO500T8 PO (11:22)
[2019-04-28] MEDS ORDERED: METH4TAB2 PO (11:22)
[2019-04-28] MEDS ORDERED: OXYC1TAB15 PO (11:22)
[2019-04-28 11:25] VITALS: BP 132/88
--- NOTE | 2019-04-28 11:25 | PDOC3 ---
Discharge Summary Visit Information Date of Admission: April 27, 2019 Date of Discharge: April 28, 2019 Admitting Diagnosis: Dysfunctionall uterine bleeding Final Diagnosis Dysfunctional uterine bleeding status post embolization History of essential hypertension well controlled History of diabetes mellitus type 2 History of hypothyroidism acquired Brief Hospital Course Allergies Allergies Coded Allergies Type Severity Reaction Last Updated Verified Penicillins Allergy Intermediate 04/28/19 Yes Vital Signs Vital Signs Date Time Temp Pulse Resp B/P (MAP) Pulse Ox O2 Delivery O2 Flow Rate FiO2 04/28/19 06:00 18 96 Room Air 04/28/19 06:00 75 135/96 04/28/19 05:52 98.8 98.8 04/27/19 12:54 2.0 Lab Results Laboratory Tests Test 04/27/19 08:47 04/27/19 09:50 04/27/19 18:14 04/28/19 04:05 White Blood Count 8.7 x10^3/uL (4.0-11.0) 10.2 x10^3/uL (4.0-11.0) Red Blood Count 4.67 x10^6/uL (3.50-5.40) 4.31 x10^6/uL (3.50-5.40) Hemoglobin 13.9 g/dL (12.0-15.5) 12.8 g/dL (12.0-15.5) Hematocrit 40.6 % (36.0-47.0) 38.0 % (36.0-47.0) Mean Corpuscular Volume 87 fL (79-100) 88 fL (79-100) Mean Corpuscular Hemoglobin 30 pg (25-35) 30 pg (25-35) Mean Corpuscular Hemoglobin Concent 34 g/dL (31-37) 34 g/dL (31-37) Red Cell Distribution Width 14.1 % (11.5-14.5) 14.2 % (11.5-14.5) Platelet Count 202 x10^3/uL (140-400) 186 x10^3/uL (140-400) Neutrophils (%) (Auto) 61 % (31-73) 62 % (31-73) Lymphocytes (%) (Auto) 30 % (24-48) 29 % (24-48) Monocytes (%) (Auto) 6 % (0-9) 6 % (0-9) Eosinophils (%) (Auto) 3 % (0-3) 2 % (0-3) Basophils (%) (Auto) 0 % (0-3) 1 % (0-3) Neutrophils # (Auto) 5.3 x10^3uL (1.8-7.7) 6.3 x10^3uL (1.8-7.7) Lymphocytes # (Auto) 2.6 x10^3/uL (1.0-4.8) 2.9 x10^3/uL (1.0-4.8) Monocytes # (Auto) 0.5 x10^3/uL (0.0-1.1) 0.6 x10^3/uL (0.0-1.1) Eosinophils # (Auto) 0.2 x10^3/uL (0.0-0.7) 0.2 x10^3/uL (0.0-0.7) Basophils # (Auto) 0.0 x10^3/uL (0.0-0.2) 0.1 x10^3/uL (0.0-0.2) Prothrombin Time 14.4 SEC (11.7-14.0) Prothromb Time International Ratio 1.2 (0.8-1.1) Activated Partial Thromboplast Time 25 SEC (24-38) Sodium Level 138 mmol/L (136-145) Potassium Level 3.8 mmol/L (3.5-5.1) Chloride Level 102 mmol/L (98-107) Carbon Dioxide Level 22 mmol/L (21-32) Anion Gap 14 (6-14) Blood Urea Nitrogen 12 mg/dL (7-20) Creatinine 0.8 mg/dL (0.6-1.0) Estimated GFR (Cockcroft-Gault) 93.4 Glucose Level 199 mg/dL (70-99) Calcium Level 8.9 mg/dL (8.5-10.1) Urine Test Negative (NEG) Glucose (Fingerstick) 200 mg/dL (70-99) Laboratory Tests Test 04/27/19 18:14 04/28/19 04:05 Glucose (Fingerstick) 200 mg/dL (70-99) White Blood Count 10.2 x10^3/uL (4.0-11.0) Red Blood Count 4.31 x10^6/uL (3.50-5.40) Hemoglobin 12.8 g/dL (12.0-15.5) Hematocrit 38.0 % (36.0-47.0) Mean Corpuscular Volume 88 fL (79-100) Mean Corpuscular Hemoglobin 30 pg (25-35) Mean Corpuscular Hemoglobin Concent 34 g/dL (31-37) Red Cell Distribution Width 14.2 % (11.5-14.5) Platelet Count 186 x10^3/uL (140-400) Neutrophils (%) (Auto) 62 % (31-73) Lymphocytes (%) (Auto) 29 % (24-48) Monocytes (%) (Auto) 6 % (0-9) Eosinophils (%) (Auto) 2 % (0-3) Basophils (%) (Auto) 1 % (0-3) Neutrophils # (Auto) 6.3 x10^3uL (1.8-7.7) Lymphocytes # (Auto) 2.9 x10^3/uL (1.0-4.8) Monocytes # (Auto) 0.6 x10^3/uL (0.0-1.1) Eosinophils # (Auto) 0.2 x10^3/uL (0.0-0.7) Basophils # (Auto) 0.1 x10^3/uL (0.0-0.2) Brief Hospital Course Ms Jordan is a 48yo F w/ PMHx Diabetes-Type II, Hypertension, hypothyroid s/p total thyroidectomy, uterine bleeding with fibroids s/p prior d&c who presents today for uterine arterial embolization for symptomatic uterine bleeding. She has been fatigued since this last September 2018. For her diabetes she states she is prediabetic, however, has A1c last September of 7.8 managed on metformin alone. TSH has been WNL. Glucose this morning was 199, INR 1.2, otherwise her Hb was 13.9, no abnormalities on labs. She is UTD on mammogram and Pap smear. She has no other complaints today. She does note she is recovering from a sinus infection last month, but notes her sinus pressure and cough have resolved. Patient underwent the following procedure: Pre-Op Diagnosis Dysmenorrhea, uterine fibroids Post-Op Diagnosis same Procedure Performed Uterine artery embolizations, bilateral Surgeon Carolina Anesthesia Type: Conscious Sedation Findings Bilateral uterine artery embolization Complications No immediate Tolerated her procedure well and was deemed appropriate for discharge. The patient was given instructions to follow-up in the outpatient setting with her physicians and with her primary care within 1 week. The patient acknowledged understanding of all the signs and symptoms of alarm and when to call for medical attention. She will receive a prescription for levofloxacin a Medrol Dosepak and pain management. CONCERNS WERE ADDRESSED THE BEST MY ABILITIES Physical exam for today lungs were clear to auscultation with good inspiratory effort bilaterally Cardiovascular exam S1-S2 regular rhythm no murmurs calls or rubs Discharge Information Condition at Discharge: Improved Follow Up: Weeks Disposition/Orders: D/C to Home Scheduled Glipizide (Glipizide Er) 5 Mg Tab.er.24, 1 TAB PO DAILY for blood sugar control, #30 Ref 5 (Reported) Entered as Reported by: ABDIAZIZ CADET on 12/08/18 1158 Last Taken: Unknown Dose on 04/26/19 Last Action: Converted on 04/27/19 1025 by ABDIRAHMAN GONZALEZ MD Levofloxacin (Levofloxacin) 500 Mg Tablet, 1 TAB PO DAILY for infection, #5 Prescribed by: BELL LOUISE MD on 04/28/19 1122 Levonorgestrel-Eth Estradiol (Kurvelo) 1 Each Tablet, 1 EACH PO DAILY for control, (Reported) Entered as Reported by: ABDIAZIZ CADET on 12/08/18 1156 Last Taken: Unknown Dose on 04/26/19 Last Action: Last Taken Edited on 04/27/19924 by ABDIAZIZ CADET Levothyroxine Sodium (Levothyroxine Sodium) 25 Mcg Tablet, 1 TAB PO DAILY, #30 Ref 5 (Reported) Entered as Reported by: MU MEZA on 09/03/14 2239 Last Taken: 125 mcg on 04/27/19 Last Action: Converted on 04/27/19 1025 by ABDIRAHMAN GONZALEZ MD Metformin Hcl (Metformin Hcl) 500 Mg Tablet, 500 MG PO BIDWMEALS for ANTI- DIABETIC, Ref 0 (Reported) Entered as Reported by: Claudia Winston on 11/17/18 1215 Last Taken: Unknown Dose on 04/26/19 Last Action: Last Taken Edited on 04/27/19924 by ABDIAZIZ CADET Methylprednisolone (Medrol) 4 Mg Tab.ds.pk, 1 PKG PO UD for inflammation, #1 Prescribed by: BELL LOUISE MD on 04/28/191121 Triamterene/Hydrochlorothiazid (Triamterene-Hctz 37.5-25 Mg Tb) 1 Each Tablet, 1 TAB PO DAILY for blood pressure control, #30 Ref 5 (Reported) Entered as Reported by: ABDIAZIZ CADET on 12/08/18 1158 Last Taken: Unknown Dose on 04/27/19 Last Action: Last Taken Edited on 04/27/19924 by ABDIAZIZ CADET Scheduled PRN Oxycodone/Apap 5-325 (Percocet 5-325 Mg Tablet ) 1 Each Tablet, 2 TAB PO PRN Q4HRS PRN for SEVERE PAIN for 7 Days, #20 Prescribed by: BELL LOUISE MD on 04/28/19 112 Discontinued Medications Doxycycline Hyclate (Doxycycline Hyclate) 100 Mg Capsule, 1 CAP PO BID for sinus infection, #14 (Reported) Entered as Reported by: ABDIAZIZ CADET on 04/27/19924 Last Taken: Unknown Dose on 04/26/19 Last Action: New Order on 04/27/19924 by BELL LINDSEY MD April 28, 2019 11:25
== END 2019-04-28 13:07 | disposition home or self-care (01) ==
LOC: INTRAD 08:30 → 3 NORTH 09:00
PROVIDERS: ADMIT Internal Medicine; ATTEND Internal Medicine
DX: D25.9 Leiomyoma of uterus, unspecified (principal); I10 Essential (primary) hypertension; E11.9 Type 2 diabetes mellitus without complications; N85.2 Hypertrophy of uterus; N93.8 Other specified abnormal uterine and vaginal bleeding; N94.6 Dysmenorrhea, unspecified; E89.0 Postprocedural hypothyroidism; Z98.890 Other specified postprocedural states; Z80.3 Family history of malignant neoplasm of breast; Z82.49 Family history of ischemic heart disease and other diseases of the circulatory system; Z83.3 Family history of diabetes mellitus
CPT/HCPCS: 36415; 37242; 75625; 75736; 76937; 80048; 81025; 82962; 85025; 85610; 85730; 96365; 96366; 96375; 96376; A4314; C1713; C1769; C1887; C1892; C1894; G0269; G0378; G0379; J1644; J1885; J1956; J2250; J2405; J3010; Q9967; 99152; 99153; J1815

== ENCOUNTER → 2019-10-18 | Outpatient (CLI) | payer OTHER ==
[~2019-10-18] MED LIST changes: +DOXY100C2 PO; +LEVO500T8 PO; +METH4TAB2 PO; +OXYC1TAB15 PO; +POTA20LI2 PO; -POTA20LI27 PO
--- NOTE | 2019-10-19 08:27 | RAD ---
EXAM: Pelvic ultrasound HISTORY: Uterine fibroid status post embolization. COMPARISON: 11/17/2018. FINDINGS: Sonographic evaluation of the pelvis was performed transabdominally. The uterus is neutral to slightly anteverted and measures 17.2 x 8.4 x 8.6 cm. The endometrial stripe measures 2 mm. Discrete fibroids are no longer detected. A remnant of the previously noted fibroid along the lower uterine segment anteriorly measures approximately 2.7 cm. Indistinctness of the junctional zone suggests adenomyosis. There is no significant free fluid. The right ovary measures 3.7 x 3.2 x 2.0 cm. It contains a 2 cm dominant follicle. The left ovary is not visualized currently. There is normal Doppler flow bilaterally. There are no suspicious lesions. IMPRESSION: 1. The uterus remains moderately enlarged at 17 x 9 cm. Discrete fibroids are not well seen. Some appear to have decreased in size since the prior study. 2. Correlate for uterine adenomyosis. 3. The left ovary is not visualized currently. Electronically signed by: Juan Diamond MD (10/19/2019 8:25 AM) [facility]
== END | disposition home or self-care (01) ==
LOC: US 15:08
PROVIDERS: ATTEND Radiology Diagnostic Radiology
DX: D25.9 Leiomyoma of uterus, unspecified (principal); N85.2 Hypertrophy of uterus
CPT/HCPCS: 76856

== ENCOUNTER 2020-07-23 12:19 | Emergency (ER) | payer OTHER ==
[~2020-07-23] VITALS: Ht 149.9 cm; Wt 90.9 kg
[2020-07-23 12:30] VITALS: BP 153/94
--- NOTE | 2020-07-23 13:08 | RAD ---
PROCEDURE: SHOULDER 2+V RIGHT CLINICAL INDICATION / HISTORY: Reason: shoulder pain right / Spl. Instructions: / History: . TECHNIQUE: AP internal and external rotation views with a Y- view were obtained. COMPARISON: none FINDINGS: No fracture, dislocation or bone destruction is identified. There are no degenerative changes at the right AC joint. No calcifications are seen in relation to the rotator cuff insertion. IMPRESSION: No acute osseous abnormality. Electronically signed by: Elmira Beltrán MD (07/23/2020 1:05 PM) [id number]
[2020-07-23] MEDS ORDERED: IBUP-1007 PO (13:38)
[2020-07-23] MEDS ORDERED: CYCL10TA2 PO (13:38)
--- NOTE | 2020-07-23 13:40 | PHYS DOC ---
Past Medical History Past Medical History: Diabetes-Type II, Hypertension, Hypothyroid Past Surgical History: Other Additional Past Surgical Histo: thyroidectomy,D&C Smoking Status: Never Smoker Alcohol Use: None Drug Use: None General Adult EDM: Chief Complaint: SHOULDER INJURY HPI: HPI: 50-year-old female past medical history significant for prediabetes, hypertension hypothyroidism, presents to the ED with complaints of right shoulder pain for the past 2 weeks. Patient states she started working out again and pain worsened 5 days ago, onset occurred when she was doing planks and push-ups. Complains of pain to her right upper back/thoracic region and sharp stabbing pain in her right chest over her pectoralis muscles that she states radiates up to her neck. No history of shoulder or neck injury. Is right-hand dominant. States she does have paresthesias in her fingers on her right upper extremity-this worsens with elbow flexion, internal rotation her shoulder and shoulder extension. No prior history of cardiac disease. States she has c ontinued to exercise since her pain started, is not lifting weights but is doing aerobics. Review of systems: Denies associated fever, chills, cough, sore throat, midline neck pain, headache, sensory or motor deficits, focal neurologic deficits, chest pressure heaviness tightness tearing or ripping, dyspnea, orthopnea, hemoptysis, unilateral leg swelling, joint swelling, rash, nausea, vomiting, diarrhea, severe abdominal or back pain. Allergies: Allergies: Allergies Coded Allergies Type Severity Reaction Last Updated Verified Penicillins Allergy Intermediate 04/28/19 Yes Physical Exam: PE: Constitutional: Well developed, well nourished, no acute distress, non-toxic appearance. [] HENT: Normocephalic, atraumatic, no midline neck ttp Eyes: EOMI, conjunctiva normal, no discharge. [] Neck: Normal range of motion, no tenderness, Cardiovascular:Heart rate regular rhythm, no murmur, +ttp over left pectoralis muscles -pain worsened with flexing these muscles Lungs & Thorax: Bilateral breath sounds clear to auscultation, +upper paraspinal back ttp Abdomen: Bowel sounds normal, soft, no tenderness, no masses, no pulsatile masses. [] Skin: Warm, dry, no erythema, no rash. [] Back: No tenderness, no CVA tenderness. [] Extremities: no cyanosis, no clubbing, ROM intact, no edema-equal radial pulses bl Neurologic: Alert and oriented X 3, normal motor function, normal sensory function, no focal deficits noted. [] Psychologic: Affect normal, judgement normal, mood normal. [] Current Patient Data: Vital Signs: Vital Signs Date Time Temp Pulse Resp B/P (MAP) Pulse Ox O2 Delivery O2 Flow Rate FiO2 07/23/20 12:30 97.5 94 16 153/94 (113) 98 Room Air 97.5 EKG: EKG: [] Radiology/Procedures: Radiology/Procedures: IMAGING REPORT Signed PATIENT: CLAY DAYOUNT: [id number] : 1970 LOCATION: ER AGE: 50 SEX: F EXAM STATUS: REG ER ORD. PHYSICIAN: WILFRED GODOY DO REASON: shoulder pain right PROCEDURE: SHOULDER 2+V RIGHT PROCEDURE: SHOULDER 2+V RIGHT CLINICAL INDICATION / HISTORY: Reason: shoulder pain right / Spl. Instructions: / History: . TECHNIQUE: AP internal and external rotation views with a Y- view were obtained. COMPARISON: none FINDINGS: No fracture, dislocation or bone destruction is identified. There are no degenerative changes at the right AC joint. No calcifications are seen in relation to the rotator cuff insertion. IMPRESSION: No acute osseous abnormality. Electronically signed by: Mallory Beltrán MD (07/23/2020 1:05 PM) [id number] DICTATED and SIGNED BY: MALLORY BELTRÁN MD DATE: 07/23/20 1305 Course & Med Decision Making: Course & Med Decision Making Pertinent Labs and Imaging studies reviewed. (See chart for details) History and physical exam concerning for musculoskeletal injury with neuropathy, thoracic outlet syndrome on differential. With asymptomatic, uncontrolled hypertension. Patient with no signs of superior vena cava syndrome, hx/pe less concerning for cardiac vs pulmonary vs neurologic process. Will DC home with anti-inflammatories and muscle relaxers. Strict ED return precautions were given for focal neurologic deficits, chest pressure heaviness or tightness or severe pain. Encouraged urgent outpatient follow-up with PMD. Life-threatening processes were considered but are low suspicion at this time, given history and physical exam. Pt was educated on all prescription medications and adverse effects. All patient's questions were answered and pt was stable at time of discharge. Differential includes fracture, dislocation, laceration, osteomyelitis, compartment syndrome, neurovascular injury or deficit, infection (abscess, cellulitis, septic arthritis), tendon or ligament injury, ACS, neurologic or pulmonary process. I spoken with the patient and her caregivers. I explained the patient's condition, diagnoses and treatment plan based on the information available to me at this time. I have answered the patient and her caregiver's questions and addressed any concerns. The patient and her caregivers have a good understanding of patient's diagnosis, condition and treatment plan as can be expected at this point. Vital signs have been stable. Patient's condition is stable and appropriate for discharge from the emergency department. Patient will pursue further outpatient evaluation with primary care physician or other designated or consulting physician as outlined in the discharge instructions. The patient and/or caregivers are agreeable to this plan of care and follow-up instructions have been explained in detail. The patient and/or caregivers have received these instructions in written form and have expressed an understanding of the discharge instructions. The patient and/or caregivers are aware that any significant change of condition or worsening of symptoms should prompt immediate return to this or the closest emergency department or call to 911. [employer] Disclaimer: DragKodable Disclaimer: This electronic medical record was generated, in whole or in part, using a voice recognition dictation system. Departure Departure Impression: Primary Impression: Neuropathy of left upper extremity Additional Impression: Musculoligamentous strain Disposition: HOME, SELF-CARE Condition: STABLE Referrals: RANDY LAL MD (PCP) Patient Instructions: Muscle Strain, Pain, Neuropathic Scripts Ibuprofen (IBUPROFEN) 600 Mg Tablet 600 MG PO PRN Q6HRS PRN for PAIN, #20 TAB take with food or milk Prov: WILFRED GODOY DO 07/23/20 Cyclobenzaprine Hcl (CYCLOBENZAPRINE HCL) 10 Mg Tablet 1 TAB PO TID, #21 TAB Prov: WILFRED GODOY DO 07/23/20 Justicifation of Admission Dx: Justifications for Admission: Justification of Admission Dx: N/A WILFRED GODOY DO Jul 23, 2020 13:40
== END 2020-07-23 13:42 | disposition home or self-care (01) ==
LOC: ER 12:19
DX: S29.012A Strain of muscle and tendon of back wall of thorax, initial encounter (principal); E11.40 Type 2 diabetes mellitus with diabetic neuropathy, unspecified; R07.89 Other chest pain; I10 Essential (primary) hypertension; E03.9 Hypothyroidism, unspecified; Z88.0 Allergy status to penicillin; X50.9XXA Other and unspecified overexertion or strenuous movements or postures, initial encounter; Y93.89 Activity, other specified; Y92.89 Other specified places as the place of occurrence of the external cause; Y99.8 Other external cause status
CPT/HCPCS: 73030; 99283

== ENCOUNTER 2022-03-14 07:57 | Emergency (ER) | payer BC, OTHER ==
[~2022-03-14] VITALS: Ht 149.9 cm; Wt 90.0 kg
[~2022-03-14 07:57] MED LIST changes: +CYCL10TA19 PO; -DOXY100C2 PO; +DOXY100C3 PO; +IBUP-1007 PO; -LEVO500T8 PO; +LEVO500T9 PO
[2022-03-14 08:12] VITALS: BP 185/90
[2022-03-14] MEDS ORDERED: OLOP2.5D12 EACHEYE (08:27)
[2022-03-14] MEDS ORDERED: FLUT9.9S NS (08:27)
[2022-03-14] MEDS ORDERED: LORA10TA3 PO (08:27)
--- NOTE | 2022-03-14 08:56 | PHYS DOC ---
Past Medical History Past Medical History: Diabetes-Type II, Hypertension, Hypothyroid Past Surgical History: Other Additional Past Surgical Histo: thyroidectomy,D&C Smoking Status: Never Smoker Alcohol Use: None Drug Use: None General Adult EDM: Chief Complaint: ALLERGIES HPI: HPI: Patient is a 51 year old female who presents with 1 to 2 weeks of tearing eyes as well as cough, sneezing, minimal sore throat, congestion. Patient states that she has been taking Benadryl which has given her a lot of relief but she stopped taking that several days ago in favor of [place] cold because she did not want her symptoms to turn into a cold. Other than those 2 medications, she has not tried anything else. She has not previously suffered from allergies and she has no clear new exposure. She is currently experiencing very minimal symptoms and is wondering what she can do for her symptoms to manage them better. Her main complaint is pressure in her sinuses. She does not have purulent nasal drainage or fever. Review of Systems: Review of Systems: Constitutional: Denies fever or chills. [] Eyes: Denies change in visual acuity. [] HENT: Positive nasal congestion and minimal sore throat. [] Respiratory: Positive cough now shortness of breath. [] Cardiovascular: Denies chest pain or edema. [] GI: Denies abdominal pain, nausea, vomiting, bloody stools or diarrhea. [] : Denies dysuria. [] Musculoskeletal: Denies back pain or joint pain. [] Integument: Denies rash. [] Neurologic: Denies headache, focal weakness or sensory changes. [] Endocrine: Denies polyuria or polydipsia. [] Lymphatic: Denies swollen glands. [] Psychiatric: Denies depression or anxiety. [] Heart Score: C/O Chest Pain: No Risk Factors: Risk Factors: DM, Current or recent (<one month) smoker, HTN, HLP, family history of CAD, obesity. Risk Scores: Score 0 - 3: 2.5% MACE over next 6 weeks - Discharge Home Score 4 - 6: 20.3% MACE over next 6 weeks - Admit for Clinical Observation Score 7 - 10: 72.7% MACE over next 6 weeks - Early Invasive Strategies Allergies: Allergies: Allergies Coded Allergies Type Severity Reaction Last Updated Verified Penicillins Allergy Intermediate 04/28/19 Yes Physical Exam: PE: Constitutional: Well developed, well nourished, no acute distress, non-toxic appearance. [] HENT: Normocephalic, atraumatic, bilateral external ears normal, TMs are normal, oropharynx moist, no oral exudates, nose with signs of allergy with swollen turbinates Eyes: PERRLA, EOMI, conjunctiva normal, clear discharge noted Neck: Normal range of motion, no tenderness, supple, no stridor. [] Cardiovascular:Heart rate regular rhythm, no murmur [] Lungs & Thorax: Bilateral breath sounds clear to auscultation [] Abdomen: Bowel sounds normal, soft, no tenderness, no masses, no pulsatile masses. [] Skin: Warm, dry, no erythema, no rash. [] Back: No tenderness, no CVA tenderness. [] Extremities: No tenderness, no cyanosis, no clubbing, ROM intact, no edema. [] Neurologic: Alert and oriented X 3, normal motor function, normal sensory function, no focal deficits noted. [] Psychologic: Affect normal, judgement normal, mood normal. [] Current Patient Data: Vital Signs: Vital Signs Date Time Temp Pulse Resp B/P (MAP) Pulse Ox O2 Delivery O2 Flow Rate FiO2 03/14/22 08:12 98.1 88 18 185/90 (121) 99 Room Air 98.1 EKG: EKG: [] Radiology/Procedures: Radiology/Procedures: [] Impression: 51-year-old female with allergic conjunctivitis, allergic rhinitis, nasal co ngestion Course & Med Decision Making: Course & Med Decision Making Pertinent Labs and Imaging studies reviewed. (See chart for details) Exam consistent with allergic conjunctivitis as well as allergic rhinitis. Patient not on antiallergy medications at this moment. I prescribed her antiallergy medications, patient was comfortable with this plan. We discussed follow-up with primary care physician in 1 to 2 weeks if no resolution of her symptoms. Patient stated that she will try the new medications and follow-up with her primary care physician if no resolution or minimal resolution. Patient has no concerning signs or symptoms. No concerning signs or symptoms for bacterial infection including sinusitis. Patient stable at the time of discharge, all questions answered. Dragon Disclaimer: Dragon Disclaimer: This electronic medical record was generated, in whole or in part, using a voice recognition dictation system. Departure Departure Impression: Primary Impression: Allergic conjunctivitis and rhinitis Disposition: HOME / SELF CARE / HOMELESS Condition: GOOD Patient Instructions: Allergic Conjunctivitis, [place] Additional Instructions: Follow-up with your primary care physician if you do not have any resolution in 2 weeks Scripts Fluticasone Propionate (Flonase Allergy Relief) 9.9 Ml [place].susp 2 SPRAYS NS DAILY for 28 Days, #1 BOTTLE Prov: ERIC JONES MD 03/14/22 Loratadine (LORATADINE) 10 Mg Tablet 10 MG PO DAILY for 30 Days, #30 TAB Prov: ERIC JONES MD 03/14/22 Olopatadine Hcl (PATADAY) 2.5 Ml Drops 1 DROP EACHEYE DAILY, #2.5 ML 3 Refills Prov: ERIC JONES MD 03/14/22 ERIC JONES MD Mar 14, 2022 08:56
== END 2022-03-14 08:35 | disposition home or self-care (01) ==
LOC: ER 07:57
DX: H10.11 Acute atopic conjunctivitis, right eye (principal); J31.0 Chronic rhinitis; E11.9 Type 2 diabetes mellitus without complications; I10 Essential (primary) hypertension; E03.9 Hypothyroidism, unspecified; Z88.0 Allergy status to penicillin
CPT/HCPCS: 99283